=== PATIENT | female | born 1970 | race Caucasian/White ===

== ENCOUNTER 2017-10-30 19:22 | Emergency (ER) | payer OTHER ==
--- NOTE | 2017-10-30 20:25 | EDPHY ---
H & P Stated Complaint: DOG BITE TO RIGHT HAND LAST NIGHT Time Seen by Provider: 10/30/17 20:03 HPI/ROS: CHIEF COMPLAINT: Dog bite to right hand HISTORY OF PRESENT ILLNESS: Patient presents with complaints of dog bite to the right hand. This occurred last night. She says she was walking down the street when a dog bit her. She does not know anything about the daughter where it is now. The injuries or to the dorsum of the right hand overlying the 2nd MCP joint, the index finger proximal phalanx and some superficial punctures to the middle finger and metacarpals on the dorsum. Pain started last night but has worsened throughout the day. There is some redness and swelling. She has no difficulty bending or straightening the fingers but it is painful to do so. Moderate to severe pain with use of the hand. Improved at rest. No radiating pain No fever chills. She does not feel sick. She has no numbness, tingling or weakness. She rinsed the wounds off at home. She is currently visiting from [place] for the [email or web address]. Uncertain when her last tetanus was administered. No other associated complaints or modifying factors. She is right-hand dominant. TIME OF INJURY: 6:30 p.m. on October 29 TETANUS STATUS: uncertain MEDICAL/SURGICAL/SOCIAL HISTORY: Uncomplicated medical history. Denies any diabetes or smoking history. She is visiting from [place] for the [employer]. REVIEW OF SYSTEMS: Ten systems reviewed and are negative unless otherwise noted in the HPI EXAMINATION General Appearance: Alert, no distress Head: normocephalic, atraumatic Cardiovascular: Symmetric radial pulses are 2+. There is brisk cap refill in the fingers of the right hand. Neurological: A&O, radial, ulnar and median distributions are intact on the right upper extremity. There is symmetric strength of the interossei. [employer] strength is symmetric. Skin: Warm and dry, no rash. There is mild erythema to the dorsum of the right hand overlying the MCP joint. There is ecchymosis and swelling throughout the dorsum of the right hand. This does not extend into the fingers or wrist. There is no lymphangitis. Extremities: Tenderness of the right hand over the areas of puncture. There is no evidence of septic joint. There is a superficial cellulitis but I do not appreciate any fluctuance or abscess. Range of motion is intact symmetrically. DIFFERENTIAL DIAGNOSES: Including but not limited to tenosynovitis, septic joint, osteomyelitis, cellulitis, infected dog bite, puncture wounds, metacarpal fracture, phalangeal fracture MDM: 8:10 p.m. Dog bite from 6:30 p.m. Last night to the right hand over the dorsum only. This is over the MCP joint of the index finger, the proximal phalanx of the index finger and 2 punctures over the proximal phalanx of the middle finger. She has swelling ecchymosis but she has full range of motion of the fingers. I do not feel that septic joint or tenosynovitis is likely. She will need irrigation and debridement which I will be able to do a bedside. I have started Augmentin therapy here. Her vital signs are within normal limits. She is afebrile in no acute distress. 9:00 p.m. I have opened up the dog punctures and they have been copiously irrigated with Betadine saline solution. The x-ray is negative for any fracture or evidence of osteomyelitis. She has been treated with Augmentin and pain medication. The wounds have been dressed without occlusive dressing. We discussed Augmentin therapy continuation and she has been commenced here. Discussed pain medication. We discussed ice and elevation. I would like to see the patient here without fail tomorrow for re-evaluation of the wound. She agrees to comply with this. She is discharged home in stable condition, with vital signs were well within normal limits in no acute distress. PROCEDURE: Irrigation and debridement Indication: Consent: Verbal Location: Dorsum of the right hand Length: 2 cm total length Complexity: Simple Anesthesia: Local. 0.5% Marcaine plain. 7 mL Procedure description: After good anesthesia the hand was prepped, sterile fashion. I incised the puncture wounds with a 15. Blade scalpel. No purulence was extruded. Wound care: Daily nonocclusive dressings with antibacterial wash Follow-up: 24 hr wound check without fail SUPERVISION: This patient was independently evaluated without direct involvement of or examination by the attending physician. ED Precautions: Worsening pain. Erythema, edema, cyanosis, pallor, paresthesia or anesthesia. - Personal History LMP (Females 10-55): 22-28 Days Ago Current Tetanus/Diphtheria Vaccine: No Current Tetanus Diphtheria and Acellular Pertussis (TDAP): No - Medical/Surgical History Hx Asthma: No Hx Chronic Respiratory Disease: No Hx Diabetes: No Hx Cardiac Disease: No Hx Renal Disease: No Hx Cirrhosis: No Hx Alcoholism: No Hx HIV/AIDS: No Hx Splenectomy or Spleen Trauma: No Other PMH: ALUTIIQ - Social History Smoking Status: Never smoked Constitutional: Initial Vital Signs Temperature (C) 97.9 F 10/30/17 19:32 Heart Rate 82 10/30/17 19:32 Respiratory Rate 18 10/30/17 19:32 O2 Sat (%) 94 10/30/17 19:32 O2 Delivery Mode Room Air Allergies/Adverse Reactions: dextromethorphan [From Robafen DM Cough-Chest Congest] Allergy (Verified 19:34) guaifenesin [From Robafen DM Cough-Chest Congest] Allergy (Verified 10/30/17 19: 34) Home Medications: Medication Instructions Recorded Amoxicillin/Clavulanate Pot 875 mg PO BID #19 tab 10/30/17 [Augmentin 875 MG TAB (*)] oxyCODONE HCL/ACETAMINOPHEN 1 each PO Q4-6PRN PRN #7 tablet 10/30/17 [Percocet 5-325 mg Tablet] Medical Decision Making - Diagnostics Imaging Results: Imaging Impressions Hand X-Ray 10/30/17 20:24 Impression: No fracture or evidence of osteomyelitis. - Data Points Medications Given: Discontinued Medications Amoxicillin/Clavulanate Potassium (Augmentin 875mg) 875 mg PO EDNOW ONE PRN Reason: Protocol Stop: 10/30/17 20:27 Last Admin: 10/30/17 20:30 Dose: 875 mg Amoxicillin/Clavulanate Potassium (Augmentin 875mg) 875 mg PO EDNOW ONE PRN Reason: Protocol Stop: 10/30/17 21:23 Last Admin: 10/30/17 21:42 Dose: 875 mg Diphtheria/Tetanus/Acell Pertussis (Boostrix) 0.5 ml IM .ONCE ONE Stop: 10/30/17 21:23 Last Admin: 10/30/17 21:41 Dose: 0.5 ml Oxycodone/Acetaminophen (Percocet 5/325mg Prepack#4) 1 btl TAKEHOME EDNOW ONE Stop: 10/30/17 21:23 Last Admin: 10/30/17 21:42 Dose: 1 btl Departure - Departure Disposition: Home, Routine, Self-Care Clinical Impression: Dog bite of right hand with infection Qualifiers: Encounter type: initial encounter Qualified Code(s): S61.451A - Open bite of right hand, initial encounter Condition: Good Instructions: Oxycodone/Acetaminophen (By mouth), Amoxicillin/Clavulanate Potassium (By mouth), Animal Bite (ED) Additional Instructions: 1. Ice and elevation often 2. Augmentin twice daily for 10 days 3. Pain medication as prescribed as needed 4. ED precautions for worsening pain, spreading of the redness or warmth, difficulty bending or straightening the fingers Referrals: Physician,Emergency Dept, MD [Medical Doctor] - 1 day without fail (for wound recheck. sooner if symptoms worsen) Prescriptions: Amoxicillin/Clavulanate Pot [Augmentin 875 MG TAB (*)] 875 mg PO BID #19 tab oxyCODONE HCL/ACETAMINOPHEN [Percocet 5-325 mg Tablet] 1 each PO Q4-6PRN PRN #7 tablet PRN Reason: Pain, Breakthrough
[2017-10-30] MEDS ORDERED: AMOXICILLIN/CLAVULANATE POT 875/125 MG TAB PO ONE ×2 (20:26→21:22)
[2017-10-30] MEDS ORDERED: TDAP ADULT 0.5 ML INJ (BOOSTRIX) IM ONE (21:22)
[2017-10-30] MEDS ORDERED: OXYCODONE/APAP 5/325MG PREPACK#4 BTL TAKEHOME ONE (21:22)
[2017-10-30] MEDS ORDERED: OXYCODONE/APAP 5/325 TAB PO ONE (21:26)
[2017-10-30 22:12] VITALS: BP 129/87
== END 2017-10-30 22:12 | disposition home or self-care (01) ==
DX: S61.451A Open bite of right hand, initial encounter (principal); Z23 Encounter for immunization; W54.0XXA Bitten by dog, initial encounter; Y92.410 Unspecified street and highway as the place of occurrence of the external cause; Y99.8 Other external cause status; Y93.01 Activity, walking, marching and hiking